=== PATIENT | female | born 1965 | race Caucasian/White ===

== ENCOUNTER 2025-11-01 00:54 | Day surgery (SDC) | payer BC, SELFPAY ==
[2025-10-17 08:50] VITALS: BMI 26.6
--- OUTSIDE RECORDS SUMMARY | 2025-11-01 00:57 | XMS_ITS | Clinical Summary ---
Author Organization [facility] Address [address] [place] [address] Care Team Providers Care Four H Agent Name Role Phone Franck Swan MD Primary Care Provider [phone] Allergies No known active allergies Medications diclofenac DR (VOLTAREN) 75 mg EC tablet TK 1 T PO BID 0 10/01/2019 Active mv,Ca,min-FA-her bal comp #223 400 mcg tablet Take by mouth Active acetaminophen-as pirin-caffeine (EXCEDRIN MIGRAINE) 250-250-65 mg per tablet Take 1 tablet by mouth every 6 (six) hours as needed Active Active Problems Problem Noted Date Diagnosed Date Bankart lesion, right, subsequent encounter 10/15 Assessment & Plan (11/02/2019 2:58 PM MACHINE PACKAGER): We discussed the risks, benefits and alternatives. At this point in time will continue to treat with conservative treatment as her pain is getting progressively better. Follow-up in 4 weeks for repeat evaluation. 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 If become symptomatic in the future may require remplissage Closed dislocation of right shoulder 10/17/2019 Overview (10/17/2019): 10-01-19 Assessment & Plan (11/02/2019 3:01 PM MACHINE PACKAGER): Continue with conservative treatment. Physician directed exercises are given. Follow up in 1 month. If no significant improvement may consider formal physical therapy. Assessment & Plan (10/17/2019 3:45 PM MACHINE PACKAGER): We discussed the risks, benefits and alternatives. I would of rather had her stay in the shoulder immobilizer for 4 weeks rather than one-week. Recommend MRI for further evaluation of the labrum and rotator cuff status Surgical History Surgery Date Site/Laterality Comments SECTION 1987 & 1989 COMBINED HYSTEROSCOPY DIAGNOSTIC / D&C 11/15/2017 - 10/17 Medical History Medical History Date Comments Known health problems: none Family History Medical History Relation Name Comments Arthritis Father Heart disease Father Hypertension Father Arthritis Mother Breast cancer Mother Cancer Mother Heart disease Mother Hypertension Mother Relation Name Status Comments Father Mother Social History Tobacco Use Types Packs/Day Years Used Date Smoking Tobacco: Former Cigarettes 1 9 - 1998 Smokeless Tobacco: Never Alcohol Use Standard Drinks/Week Comments Yes 0 (1 standard drink = 0.6 oz pur e alcohol) socially Comments No Sex and Gender Information Value Date Recorded Sex Assigned at Not on file Legal Sex Female 5:40 PM MACHINE PACKAGER Gender Identity Not on file Sexual Orientation Not on file 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 Not on file Not on file Not o n file Obstetrics History Para Term AB IAB SAB Ectopic Multiple Livin g Live Births 2 2 2 Date Outcome GA Total Labor Labor/2nd/3rd Weight Sex Type Anes PTL Sera A1 A5 Name Clin Term Term Last Filed Vital Signs Vital Sign Reading Time Taken Comments Blood Pressure 121/73 10/01/2019 10:34 AM MACHINE PACKAGER Pulse 94 10/01/2019 10:34 AM MACHINE PACKAGER Temperature 36.6 C (97.9 F) 10/01/2019 10:34 AM MACHINE PACKAGER Respiratory Rate - - Oxygen Saturation 94% 10/01/2019 10:34 AM MACHINE PACKAGER Inhaled Oxygen Concentration - - Weight 68.9 kg (152 lb) 05/25/2025 1:32 PM CDT Height 167.6 cm (5' 6) 05/25/2025 1:32 PM CDT Body Mass Index 24.53 05/25/2025 1:32 PM CDT Plan of Treatment Health Maintenance Due Date Last Done Comments Cervical Cancer Screening 1963 Colon Cancer Screening-Colonoscopy 1963 Depression Screening 1963 Hepatitis C Screening 1963 Hepatitis B Screening 1981 Regular Well Visit/Exam 18-64 1981 Zoster Vaccine (1 of 2) 2013 Influenza Vaccine (#1) 2025 Breast Cancer Screening-Mammogram 05/25/2026 05/25/2025, 05/19/2024, 05/07/2023, Additional history exists DTaP/Tdap/Td Vaccine (2 - Td or Tdap) 09/20/2027 09/20/2017 Pneumococcal vaccine <65 Aged Out No longer eligible based on patient's age to complete this topic Procedures Procedure Name Priority Date/Time Associated Diagnosis Comments SCREENING MAMMOGRAM BILATERAL W DARRON Schedule Routine, Read Routine (OP Routine) 05/25/2025 1:41 PM CDT Screening mammogram, encounter for from Last 3 Months or Most Recently Relevant to Health Maintenance Results * Screening Mammogram Bilateral W Darron (05/25/2025 1:41 PM CDT) Anatomical Region Laterality Modality Breast Bilateral Mammography Impressions 05/25/2025 6:55 PM CDT Bilateral No evidence of malignancy in either breast. OVERALL BI-RADS FINAL ASSESSMENT: 1 - Negative RECOMMENDATION: Recommend bilateral annual screening mammography. Narrative 05/25/2025 6:55 PM CDT EXAMINATION: Screening Mammogram Bilateral W Darron: 05/25/2025 COMPARISON: Relevent prior studies available at the time of interpretation were reviewed, including the most recent mammogram on: 05/19/2024. TECHNIQUE: Mammography was performed with 2D and digital breast tomosynthesis (DBT) images. CAD was utilized. BREAST PARENCHYMAL COMPOSITION: The breasts are heterogeneously dense, which may obscure small masses. FINDINGS: Bilateral There is no suspicious mass, calcification, or architectural distortion in either breast. us Self Screening Mammogram IMG MAMMO PROCEDURES Fi nal Result from Last 3 Months or Most Recently Relevant to Health Maintenance Insurance [employer] CHOICE [place] ACCESS [place] Care Teams Four H Agent Relationship Specialty Start Date End Date Franck Swan MD [address] [address] PCP - General Family Medicine 02/10/22
--- OUTSIDE RECORDS SUMMARY | 2025-11-01 00:57 | XMS_ITS | Clinical Summary ---
Author Organization [facility] Address [address] [place] [id number] Care Team Providers Care Makeup Editor Name Role Phone Unavailable Primary Care Provider Unavailabl e Social History Tobacco Use Types Packs/Day Years Used Date Smoking Tobacco: Never Assessed Comments Unknown Sex and Gender Information Value Date Recorded Sex Assigned at Not on file Legal Sex Female 5:28 PM CDT Gender Identity Not on file Sexual Orientation Not on file Plan of Treatment Health Maintenance Due Date Last Done Comments Cervical Cancer Screening Pa p Smear (Age 30 to 64) Every 3 Years 1963 Colorectal Cancer Screening Colonoscopy (10 Years) 1963 Annual Physical 1966 Hepatitis C 1981 DTaP, Tdap and Td Vaccines ( 1 - Tdap) 1982 Cervical Cancer Screening Pa p with HPV Testing (Age 30 to 64) Every 5 Years 1993 Cervical Cancer Screening with HPV 1993 Mammogram Screening 2003 Pneumococcal Vaccine: 50+ Ye ars (1 of 1 - PCV) 2013 Zoster Vaccines (1 of 2) 2013 COVID-19 Vaccine (2024-2 6 season) 2025 Influenza Adult (#1) 2025 RSV Immunization or 60+ Years (1 - 1-dose 75+ series) 2038 Hepatitis A Vaccines Aged Out No long er eligible based on patient's age to complete this topic Meningococcal B Vaccine Aged Out No l onger eligible based on patient's age to complete this topic Meningococcal Vaccine Aged Out No leo jannette eligible based on patient's age to complete this topic RSV Immunizations Under 20 Months Aged Out No longer eligible based on patient's age to complete this topic
--- NOTE | 2025-11-01 10:54 | P.PNAN_ITS ---
Anes - Initial Pre Proc Eval Procedure: Operation Date: 11/01/25 11:00 Proposed Procedures p Screening Colonoscopy - Ricky Okeefe MD Date/Time: 11/01/25 10:54 Surgeon: Ricky Okeefe MD Pre Op Diagnosis: Screening Patient Data Age: 60 Gender: F Height: 1.65 m Weight: 72.6 kg Allergies Allergy/AdvReac Type Severity Reaction Status Date / Time No Known Allergies Allergy Verified 11/01/25 10:53 Home Medications ?Medication ?Instructions ?Recorded ?Confirmed ?Type omeprazole 20 mg tablet,delayed 20 mg PO DAILY 5 11/01/25 History release Patient hx anesthesia problems: none Family hx anesthesia problems: none Results Review: All pre-operative results and documents have been reviewed as part of the pre- operative evaluation. [facility] Social History Social History Years smoked: 15 Tobacco type: cigarettes Alcohol intake: current Drinks per week: 4 Substance use: never Substance use type: does not use Living arrangements: with family Spiritual care concerns: No Anes - Eval Final PreProcedure Day of Procedure 11/01/25 10:54 Patient weight: overweight Lungs: normal air movement Airway: Mallampati scale class II Neurological: alert and oriented Last oral intake: >/= 8 hours ASA classification: II Emergent: no Anesthetic plan: proceed Anesthesia type and monitoring: general GIVS and standard monitoring Results Review: All pre-operative results and documents have been reviewed as part of the pre- operative evaluation. Ex smoker, quit approx 1994. Active without cp or sob. Informed Consent: The patient's anesthetic plan and its attendant risks and benefits were discussed with the patient/family/POA. Questions were solicited and answers provided to the satisfaction of the patient/family/POA.
[2025-11-01 10:55] VITALS: BP 145/82; PULSE 99; RESP 18; TEMP 36.7; O2SAT 100
[2025-11-01] MEDS: LACTATED RINGERS 1,000 ML 150 ML IV CONT (10:58)
--- NOTE | 2025-11-01 11:08 | PM.IMHP2 ---
H&P: HPI History of Present Illness Date/Time: 11/01/25 11:08 Chief Complaint: Screening colonoscopy Narrative: This is the patient's 2nd screening colonoscopy. There are no GI symptoms and there is no family history of colorectal cancer. Review of Systems Review of Systems: All systems reviewed & are unremarkable except as noted in HPI and below [facility] Social History Social History Years smoked: 15 Tobacco type: cigarettes Alcohol intake: current Drinks per week: 4 Substance use: never Substance use type: does not use Living arrangements: with family Spiritual care concerns: No Meds Home Medications and Allergies Home Medications ?Medication ?Instructions ?Recorded ?Confirmed ?Type omeprazole 20 mg tablet,delayed 20 mg PO DAILY 10/17/25 11/01/25 History release Allergies Allergy/AdvReac Type Severity Reaction Status Date / Time No Known Allergies Allergy Verified 11/01/25 10:53 Vital Signs Vital Signs - 24 hr 11/01/25 10:55 Temperature 98.1 F Pulse Rate 99 Respiratory Rate 18 Blood Pressure 145/82 H Pulse Oximetry 100 Oxygen Delivery Room Air Exam Const: General: cooperative and healthy appearing Resp: Effort & Inspection: normal respiratory effort and able to speak in complete sentences Auscultation: clear to auscultation bilaterally Cardio: Rate: regular rate Rhythm: regular rhythm GI: Inspection: normal to inspection GI Palp: No No hepatosplenomegaly present Auscultation: normal bowel sounds Rectal Exam: deferred Skin: General skin exam: normal color Psych: Appearance: grossly normal Mental Status: mental status grossly normal Assessment and Plan Assessment and plan (1) Encounter for screening colonoscopy: Code(s): Z12.11 - Encounter for screening for malignant neoplasm of colon Status: Acute Assessment and Plan: The patient is deemed a good candidate for the procedure. Consent signed. Will proceed. Prior Studies I have reviewed the following patient records and this information was taken into consideration when formulating the assessment and plan.: previous labs, previous ER visits, previous hospitalizations and previous clinic visits
[2025-11-01 11:23] VITALS: BP 133/97; PULSE 83; RESP 20; O2SAT 98
[2025-11-01 11:33] VITALS: BP 122/67; PULSE 81; RESP 21; O2SAT 100
[2025-11-01 11:43] VITALS: BP 130/77; PULSE 78; RESP 18; O2SAT 100
== END 2025-11-01 11:54 | disposition home or self-care (01) ==
PROVIDERS: PCP Family Medicine; Referring Provider Family Medicine; Visit Provider Internal Medicine Gastroenterology
PROC: 0DJD8ZZ Inspection of Lower Intestinal Tract, Via Natural or Artificial Opening Endoscopic (ICD-10-PCS; CPT 45378; principal; 2025-11-01 11:00)
DX: Z12.11 Encounter for screening for malignant neoplasm of colon (principal); K57.30 Diverticulosis of large intestine without perforation or abscess without bleeding; K64.8 Other hemorrhoids
CPT/HCPCS: 45378; J2704; J7120